=== PATIENT | male | born 1975 | race Two or more races ===

== ENCOUNTER 2022-08-12 12:51 | Outpatient (CLI) | payer OTHER | END 2022-08-12 12:56 | disposition home or self-care (01) | LOC: RAD 12:51 | PROVIDERS: ATTEND General Practice | DX: R06.02 Shortness of breath (principal); Z13.88 Encounter for screening for disorder due to exposure to contaminants; Z57.2 Occupational exposure to dust ==

== ENCOUNTER 2024-10-17 11:23 | Outpatient (CLI) | payer OTHER | END 2024-10-17 11:25 | disposition home or self-care (01) | LOC: RAD 11:23 | PROVIDERS: ATTEND General Practice | DX: Z57.2 Occupational exposure to dust (principal); Z13.88 Encounter for screening for disorder due to exposure to contaminants ==